=== PATIENT | male | born 1965 | race Caucasian/White ===

== ENCOUNTER 2022-10-02 17:14 | Emergency (ER) | payer OTHER, SELFPAY ==
[2022-10-02 17:15] VITALS: BP 154/104; PULSE 92; RESP 16; TEMP 35.8; O2SAT 98; BMI 31.4
--- NOTE | 2022-10-02 17:23 | EKG12_ITS ---
Test Reason : CP Blood Pressure : / mmHG Vent. Rate : 088 BPM Atrial Rate : 088 BPM P-R Int : 194 ms QRS Dur : 084 ms QT Int : 352 ms P-R-T Axes : 040 -04 067 degrees QTc Int : 425 ms Normal sinus rhythm T wave abnormality, consider lateral ischemia Abnormal ECG Confirmed by VISHNU KYLE, FARIDEH ([id number]), graphics editor JUANITA JOHN ([id number]) on 10/07/2022 11:51:18 AM Referred By: Confirmed By:FARIDEH MARES MD
[2022-10-02 17:40] LABS: Absolute Neutrophil Count 9.3 X10^3/uL (2.0-7.7); Basophil# 0.03 X10^3/uL; Basophil% 0.2 % (0-1); Eosinophil# 0.06 X10^3/uL; Eosinophils% 0.5 % (0-5); Hematocrit 47.9 % (40-54); Hemoglobin 16.4 g/dL (13.0-16.5); Lymphocyte % 18.2 % (19-41); Mean Corp Hgb Conc 34.2 g/dL (32-36); Mean Corpuscular Hgb 31.2 pg (27.0-32.0); Mean Corpuscular Volume 91.1 fL (80-94); Mean Platelet Vol. 8.2 fl (6.2-12.0); Monocyte# 0.92 X10^3/uL; Monocyte% 7.3 % (0-10); NRBC Flagged by Analyzer 0 % (0-5); Neutrophil # 9.32 X10^3/uL (2.7-7.7); Neutrophil % 73.5 % (47-70); Platelet Count 348 K/mm3 (150-450); RBC Distribution Width CV 12.3 % (11.6-14.6); RBC Distribution Width SD 40.9 fl (35.1-43.9); Red Blood Count 5.26 M/mm3 (4.6-6.2); White Blood Count 12.7 K/mm3 (4.4-11.0)
[2022-10-02 18:07] LABS: Anion Gap 7 (5-15); BUN 13 mg/dL (7-18); BUN/Creat Ratio 13.3 RATIO (10-20); Calcium,Total 9.6 mg/dL (8.5-10.1); Chloride 101 mmol/L (98-107); Creatinine, Serum 0.97 mg/dL (0.70-1.30); EST Glomerular Filtration Rate 84 mL/min (>60); Est Glom Filt Rate - Afr Amer 102 mL/min (>60); Estimated Creatinine Clearance 78.56 ml/min; Glucose 112 mg/dL (74-106); Sodium Level 138 mmol/L (136-145)
[2022-10-02 18:45] LABS: Lipase 465 U/L (73-393)
[2022-10-02 18:49] LABS: AST(SGOT) 24 U/L (15-37); Alanine Aminotransfer ALT/SGPT 47 U/L (16-61); Albumin, Serum 3.9 g/dL (3.2-5.0); Alkaline Phosphatase 70 U/L (45-117); Bilirubin, Direct 0.29 mg/dL (0.00-0.30); Globulin 3.5 g/dL (2.2-4.2); Protein, Total 7.4 g/dL (6.4-8.2)
--- NOTE | 2022-10-02 18:50 | CT_ITS ---
STUDY: CT Abdomen And Pelvis W/ Contrast Injection 10/02/2022 8:39 PM REASON FOR EXAM: Male, 56 years old. ABDOMINAL PAIN abdominal pain -- IV PO Contrast TECHNIQUE: Transaxial images were obtained with oral contrast, and with Oral and amp; IV Gastrografin and amp; 100mL Isovue-370 intravenous contrast. Individualized dose optimization techniques were used for this CT. COMPARISON: None. FINDINGS: The visualized lung bases are unremarkable. The visualized portions of the heart are within normal limits. Unremarkable liver. Unremarkable gallbladder and extrahepatic biliary system. Unremarkable spleen. Unremarkable pancreas. Unremarkable bilateral adrenal glands. No acute findings of the right kidney. No acute findings of the left kidney. Focal wall thickening of the antrum of stomach. This can suggest a gastritis. Unremarkable small intestine. Unremarkable colon. There is non-visualization of the appendix. There are calcifications of the abdominal aorta. This is consistent for atherosclerotic disease. There is no abdominal aortic aneurysm. Unremarkable inferior vena cava. Subcentimeter mesenteric lymph nodes. Unremarkable urinary bladder. There is an umbilical hernia containing fat. Unremarkable osseous structures. CT/Abdomen/Pelvis WITH Contrast IMPRESSION: (NOT LISTED IN ORDER OF SIGNIFICANCE) Gastritis. Other findings as above. Electronically Signed: Cristian Vieyra MD at 20:44 [facility] ,
--- NOTE | 2022-10-02 18:51 | EDS_ITS ---
HPI <KALYAN Alvarenga - Last Filed: 10/02/22 21:43> HPI - GI History of Present Illness Chief Complaint: Abd Pain Narrative Narrative: Patient presents with tenderness, pain, and pressure to his epigastric region. He states he has had these symptoms intermittently for the past 2 months but they usually go away. Today the symptoms did not resolve prompting him to go to his PCP who advised him to come here. Patient states he has lost about 25 pounds in the past month 2 months without trying and experiences early satiety. Patient states he has a few beers every night. He has never had pancreatitis and he has no history of abdominal surgeries. He denies nausea, vomiting, diarrhea, dysuria, hematuria, and blood in his stool. PFSH <KALYAN Alvarenga - Last Filed: 10/02/22 21:43> PFSH Medical History Hypothyroidism Home Medications diazepam 5 mg tablet 5 mg PO TID #10 tabs 09/26/16 [Rx Last Taken Unknown] levothyroxine 100 mcg tablet 200 mcg PO DAILY 09/26/16 [History Last Taken Unknown] oxycodone-acetaminophen 5 mg-325 mg tablet 1 tab PO Q6H PRN PRN neck pain ##20 09/26/16 [Rx Last Taken Unknown] ropinirole 0.5 mg tablet (Requip) 0.5 mg PO QHS 09/26/16 [History Last Taken Unknown] trazodone 100 mg tablet 100 mg PO QHS 09/26/16 [History Last Taken Unknown] pantoprazole 40 mg tablet,delayed release (Protonix) 40 mg PO DAILY gastritis 30 days #30 tabs 10/02/22 [Rx Last Taken Unknown] Allergy/AdvReac Type Severity Reaction Status Date / Time No Known Allergies Allergy Verified 10/02/22 17:15 Social History Smoking Status: Never smoker ROS <KALYAN Alvarenga - Last Filed: 10/02/22 21:43> ROS ED Constitutional Constitutional ED: Denies chills or fever(s) ENT ENT ED: Denies rhinorrhea or sore throat Cardiovascular Cardiovascular: Denies chest pain Respiratory/Chest Respiratory/Chest: Denies cough, dyspnea, shortness of breath at rest or shortness of breath with exertion Gastrointestinal Gastrointestinal: Reports abdominal pain; Denies constipation, diarrhea, melena, nausea or vomiting Genitourinary Genitourinary ED: Denies dysuria, hematuria or urinary frequency Musculoskeletal Musculoskeletal: Denies myalgias Integumentary Denies abscess, Abrasions or rash Neurologic Neurologic: Denies headache(s) or weakness EXAM <KALYAN Alvarenga - Last Filed: 10/02/22 21:43> Physical Exam Const Vital Signs: 10/02/22 17:15 Temperature 96.5 F L Temperature Source Temporal Pulse Rate 92 Respiratory Rate 16 Blood Pressure 154/104 H Blood Pressure Mean 120 Pulse Ox 98 Oxygen Delivery Method Room Air Positive well nourished HEENT Reports moist mucous membranes normocephalic and atraumatic Eyes PERRL and EOMs intact bilaterally Neck supple Resp normal respiratory effort and clear to auscultation bilaterally Cardio regular rate, regular rhythm and no murmurs GI non-distended and no masses GI Narrative: Patient is tender to palpation in the epigastric region. Extremity full ROM Neuro CN's II-XII intact bilaterally, moves all extremities, no sensory deficits noted and gait normal Sensorium / Orientation: alert, oriented to person, oriented to place and oriented to time Psych mental status grossly normal and thought process normal Skin no wounds General Skin Exam: Negative for jaundice Lesions: no lesions Rashes: no rashes Trauma: Negative for abrasion <Dr. Otf Sorenson MD - Last Filed: 10/04/22 14:16> Physical Exam Const Vital Signs: 10/02/22 17:15 Temperature 96.5 F L Temperature Source Temporal Pulse Rate 92 Respiratory Rate 16 Blood Pressure 154/104 H Blood Pressure Mean 120 Pulse Ox 98 Oxygen Delivery Method Room Air MDM <KALYAN Alvarenga - Last Filed: 10/02/22 21:43> [facility] Narrative Medical decision making narrative: Abdominal CT shows gastritis. This is consistent with patient's epigastric tenderness. Patient states he eats a lot of greasy and fast food, drinks alcohol daily, and eats a lots of Citizen [place] food. Patient has been given a prescription for Protonix. Patient will be following up with PCP. I have given return instructions to patient and answered all of his questions. I have educated patient on foods he should avoid as well as avoiding NSAIDs and alcohol. I am comfortable with patient discharging home and patient is comfortable with plan. Lab Data Attestation: I reviewed the patient's lab results. Lab results narrative: Elevated white blood cell count and neutrophil count. Labs: Laboratory Results - last 24 hr 10/02/22 10/02/22 10/02/22 17:30 17:30 17:30 WBC 12.7 H RBC 5.26 Hgb 16.4 Hct 47.9 MCV 91.1 MCH 31.2 MCHC 34.2 RDW Std Deviation 40.9 RDW Coeff of Gm 12.3 Plt Count 348 MPV 8.2 Immature Gran % (Auto) 0.300 Neut % (Auto) 73.5 H Lymph % (Auto) 18.2 L [place] % (Auto) 7.3 Eos % (Auto) 0.5 Baso % (Auto) 0.2 Absolute Neuts (auto) 9.3 H Absolute Lymphs (auto) 2.30 Nucleated RBC % 0 Sodium 138 Potassium 4.0 Chloride 101 Carbon Dioxide 30.0 Anion Gap 7 BUN 13 Creatinine 0.97 Estim Creat Clear Calc 78.56 Est GFR (MDRD) Af Amer 102 Est GFR (MDRD) Non-Af 84 BUN/Creatinine Ratio 13.3 Glucose 112 H Calcium 9.6 Total Bilirubin 1.30 H Direct Bilirubin 0.29 AST 24 ALT 47 Alkaline Phosphatase 70 Total Protein 7.4 Albumin 3.9 Globulin 3.5 Lipase Urine Color Urine Clarity Urine pH Ur Specific [place] Urine Protein Urine Glucose (UA) Urine Ketones Urine Occult Blood Urine Nitrite Urine Bilirubin Urine Urobilinogen Ur Leukocyte Esterase Urine RBC Urine WBC Ur Squamous Epith Cells Urine Bacteria Urine Mucus 10/02/22 10/02/22 17:30 20:05 WBC RBC Hgb Hct MCV MCH MCHC RDW Std Deviation RDW Coeff of Gm Plt Count MPV Immature Gran % (Auto) Neut % (Auto) Lymph % (Auto) [place] % (Auto) Eos % (Auto) Baso % (Auto) Absolute Neuts (auto) Absolute Lymphs (auto) Nucleated RBC % Sodium Potassium Chloride Carbon Dioxide Anion Gap BUN Creatinine Estim Creat Clear Calc Est GFR (MDRD) Af Amer Est GFR (MDRD) Non-Af BUN/Creatinine Ratio Glucose Calcium Total Bilirubin Direct Bilirubin AST ALT Alkaline Phosphatase Total Protein Albumin Globulin Lipase 465 H Urine Color Yellow Urine Clarity Clear Urine pH 6.0 Ur Specific [place] 1.020 Urine Protein Negative Urine Glucose (UA) Normal Urine Ketones Negative Urine Occult Blood Negative Urine Nitrite Negative Urine Bilirubin Negative Urine Urobilinogen Normal Ur Leukocyte Esterase Negative Urine RBC 0 SEEN Urine WBC 0 SEEN Ur Squamous Epith Cells 0 SEEN Urine Bacteria 0 SEEN Urine Mucus 0 SEEN Radiography Diagnostic Testing: Clinical Impression(s) from Imaging Studies Abdomen/Pelvis CT 10/02/22 18:50 IMPRESSION: (NOT LISTED IN ORDER OF SIGNIFICANCE) Gastritis. Other findings as above. Electronically Signed: Cristian Vieyra MD at 20:44 EST , CT reviewed and I agree with radiologist impression. This has also been reviewed by attending ED physician. <Dr. Otf Sorenson MD - Last Filed: 10/04/22 14:16> MDM MDM Narrative Medical decision making narrative: Abdominal CT shows gastritis. This is consistent with patient's epigastric tenderness. Patient states he eats a lot of greasy and fast food, drinks alcohol daily, and eats a lots of [place] food. Patient has been given a pres cription for Protonix. Patient will be following up with PCP. I have given return instructions to patient and answered all of his questions. I have educated patient on foods he should avoid as well as avoiding NSAIDs and alcohol. I am comfortable with patient discharging home and patient is comfortable with plan. I have personally performed a face to face assessment of the patient and have re viewed the KRISTIN Note. I performed a substantive portion of the visit including all aspects of the following. My fabian findings include: History is remarkable for patient having several drinks per day. He presents with epigastric pain and unintentional weight loss of approximately 20 pounds. He denies night sweats. He denies history of cancer. He denies change in color, consistency or caliber of his stool. He denies cardiac or respiratory symptoms. He denies history of intolerance to greasy food or fried foods. He denies history of pancreatitis. Exam is is remarkable for pain in the epigastric left upper quadrant. There is no hepatosplenomegaly. There are no palp pulsatile mass or abdominal bruit. Lungs are clear to auscultation. Breath sounds are symmetric. Heart is regular. There is no murmur, gallop or rub. Rate is normal. Medical Decision Making differential diagnosis would include gastritis, peptic ulcer disease, alcoholic liver disease, pancreatitis. Patient's amylase is approximately 2 times normal. This is not diagnostic for pancreatitis. CT was obtained. CT reveals evidence of acute gastritis. Patient was treated with PPI. Other additions or changes: As documented Lab Data Labs: Laboratory Results - last 24 hr 10/02/22 10/02/22 10/02/22 17:30 17:30 17:30 WBC 12.7 H RBC 5.26 Hgb 16.4 Hct 47.9 MCV 91.1 MCH 31.2 MCHC 34.2 RDW Std Deviation 40.9 RDW Coeff of Gm 12.3 Plt Count 348 MPV 8.2 Immature Gran % (Auto) 0.300 Neut % (Auto) 73.5 H Lymph % (Auto) 18.2 L [place] % (Auto) 7.3 Eos % (Auto) 0.5 Baso % (Auto) 0.2 Absolute Neuts (auto) 9.3 H Absolute Lymphs (auto) 2.30 Nucleated RBC % 0 Sodium 138 Potassium 4.0 Chloride 101 Carbon Dioxide 30.0 Anion Gap 7 BUN 13 Creatinine 0.97 Estim Creat Clear Calc 78.56 Est GFR (MDRD) Af Amer 102 Est GFR (MDRD) Non-Af 84 BUN/Creatinine Ratio 13.3 Glucose 112 H Calcium 9.6 Total Bilirubin 1.30 H Direct Bilirubin 0.29 AST 24 ALT 47 Alkaline Phosphatase 70 Total Protein 7.4 Albumin 3.9 Globulin 3.5 Lipase Urine Color Urine Clarity Urine pH Ur Specific [place] Urine Protein Urine Glucose (UA) Urine Ketones Urine Occult Blood Urine Nitrite Urine Bilirubin Urine Urobilinogen Ur Leukocyte Esterase Urine RBC Urine WBC Ur Squamous Epith Cells Urine Bacteria Urine Mucus 10/02/22 10/02/22 17:30 20:05 WBC RBC Hgb Hct MCV MCH MCHC RDW Std Deviation RDW Coeff of Gm Plt Count MPV Immature Gran % (Auto) Neut % (Auto) Lymph % (Auto) [place] % (Auto) Eos % (Auto) Baso % (Auto) Absolute Neuts (auto) Absolute Lymphs (auto) Nucleated RBC % Sodium Potassium Chloride Carbon Dioxide Anion Gap BUN Creatinine Estim Creat Clear Calc Est GFR (MDRD) Af Amer Est GFR (MDRD) Non-Af BUN/Creatinine Ratio Glucose Calcium Total Bilirubin Direct Bilirubin AST ALT Alkaline Phosphatase Total Protein Albumin Globulin Lipase 465 H Urine Color Yellow Urine Clarity Clear Urine pH 6.0 Ur Specific [place] 1.020 Urine Protein Negative Urine Glucose (UA) Normal Urine Ketones Negative Urine Occult Blood Negative Urine Nitrite Negative Urine Bilirubin Negative Urine Urobilinogen Normal Ur Leukocyte Esterase Negative Urine RBC 0 SEEN Urine WBC 0 SEEN Ur Squamous Epith Cells 0 SEEN Urine Bacteria 0 SEEN Urine Mucus 0 SEEN Radiography Diagnostic Testing: Clinical Impression(s) from Imaging Studies Abdomen/Pelvis CT 10/02/22 18:50 IMPRESSION: (NOT LISTED IN ORDER OF SIGNIFICANCE) Gastritis. Other findings as above. Electronically Signed: Cristian Vieyra MD at 20:44 EST , Discharge Plan Triage Chief Complaint: Abd Pain ED Midlevel Provider: Sandra Pritchard ED Provider: Otf Sorenson Dx/Rx/DC Orders Clinical Impression: Gastritis, Benign hypertension, Graves' disease, Alcohol use Instructions: ED Gastritis (Adult) Prescriptions: New pantoprazole [Protonix] 40 mg tablet,delayed release (DR/EC) 40 mg PO DAILY 30 Days Qty: 30 0RF No Action levothyroxine 100 MCG tablet 200 mcg PO DAILY trazodone 100 MG tablet 100 mg PO QHS ropinirole [Requip] 0.5 MG tablet 0.5 mg PO QHS oxycodone-acetaminophen 1 TABLET tablet 1 tab PO Q6H PRN PRN (Reason: neck pain) Qty: 20 0RF diazepam 5 MG tablet 5 mg PO TID Qty: 10 0RF Primary Care Provider: Oleksandr Marie Referrals: Oleksandr Marie MD [Primary Care Provider] - 1 Week Activity Restrictions/Additional Instructions: Avoid alcohol, spicy foods, and acidic foods. Return if symptoms worsen. Disposition Disposition: Home, Self Care Discharge Date/Time: 10/02/22 21:10
[2022-10-02 20:08] LABS: Bacteria 0 SEEN /hpf (None Seen); Mucous, Urine 0 SEEN /hpf (<or=2+); Red Blood Cells-Urine 0 SEEN /hpf (0-5); Squamous Epithelial Cells - UA 0 SEEN /hpf (0-5); White Blood Cells 0 SEEN /hpf (0-5)
[2022-10-02 20:09] LABS: Color, Urine Yellow (Yellow); Glucose, Dipstick Normal (Normal); Ketone-Dipstick Negative (Negative); Leukocyte Esterase-Dipstick Negative /ul (Negative); Nitrite-Dipstick Negative (Negative); Occult Blood-Urine Negative /ul (Negative); Protein-Dipstick Negative (Negative); Urine Bilirubin Dipstick Negative (Negative); Urine Clarity Clear (Clear); Urine Urobilinogen Normal (Normal)
[2022-10-02] MEDS: Pantoprazole Sodium 40 MG Tablet PO (21:03)
== END 2022-10-02 21:10 | disposition home or self-care (01) ==
PROVIDERS: Emergency Medicine; Emergency Provider Emergency Medicine; PCP Family Medicine; Visit Provider Emergency Medicine
DX: K29.70 Gastritis, unspecified, without bleeding (principal); I10 Essential (primary) hypertension; E05.00 Thyrotoxicosis with diffuse goiter without thyrotoxic crisis or storm; F10.90 Alcohol use, unspecified, uncomplicated; R63.4 Abnormal weight loss
CPT/HCPCS: 74177; 80048; 80076; 81001; 83690; 85025; 93005; 99283; Q9967